=== PATIENT | female | born 1940 | race Caucasian/White ===

== ENCOUNTER 2020-12-10 11:32 | Inpatient (IN) | payer MEDICARE ==
[~2020-12-10] VITALS: Ht 165.1 cm; Wt 80.2 kg
[2020-12-10 12:39] LABS: BASOPHILS % (AUTO) 0.6 % (0.0-5.0); EOSINOPHILS % (AUTO) 0.8 % (0.0-8.0); HEMATOCRIT 39.7 % (36-48); LYMPHOCYTES % (AUTO) 18.3 % (21.0-51.0); MEAN CORPUSCULAR HEMOGLOBIN 33.5 pg (27.0-33.0); MEAN CORPUSCULAR HGB CONC 33.8 g/dL (32.0-36.0); MEAN CORPUSCULAR VOLUME 99.3 fL (79-99); MONOCYTES % (AUTO) 7.5 % (3.0-13.0); PLATELET COUNT (AUTO) 173 K/uL (130-400); RED CELL DISTRIBUTION WIDTH 14.2 % (11.0-15.5); WHITE BLOOD COUNT (AUTO) 13.1 K/uL (4.8-10.8)
[2020-12-10 12:47] LABS: CREATININE 1.2 mg/dL (0.5-1.5); POTASSIUM 4.2 mmol/L (3.5-5.1)
[2020-12-10 12:56] LABS: ALBUMIN 3.2 g/dL (3.5-5.0); BILIRUBIN,TOTAL 1.4 mg/dL (0.2-1.0); TOTAL PROTEIN, SERUM 6.5 g/dL (6.0-8.3)
[2020-12-10 12:59] LABS: INR 2.11 (0.85-1.15); PROTHROMBIN TIME 21.5 SEC (9.6-11.6)
[2020-12-10 13:00] LABS: PARTIAL THROMBOPLASTIN TIME 36.7 SEC (26.3-35.5)
[2020-12-10] MEDS ORDERED: NITROGLYCERIN 0.4 MG SL TAB SL PRN (19:15)
[2020-12-10] MEDS ORDERED: ONDANSETRON 4MG INJ IV PRN (19:15)
[2020-12-10] MEDS ORDERED: ACETAMINOPHEN 325 MG TAB PO PRN ×2 (19:15)
[2020-12-10 19:19] LABS: APPEARANCE,URINE Clear (CLEAR); BILIRUBIN,URINE Negative (NEGATIVE); COLOR,URINE Yellow (YELLOW); GLUCOSE, URINE (UA) Negative (NEGATIVE); KETONES,URINE 15 mg/dL (NEGATIVE); LEUKOCYTE ESTERASE ,URINE Trace (NEGATIVE); NITRATE,URINE Negative (NEGATIVE); OCCULT BLOOD,URINE Negative (NEGATIVE); PH,URINE 5.5 (5.0-8.0); PROTEIN,URINE Negative (NEGATIVE)
[2020-12-10 19:24] LABS: RBC,URINE 0-1 /HPF (0-1)
[2020-12-10 19:25] LABS: BACTERIA,URINE Few /HPF (None Seen); SQUAMOUS EPITHELIAL CELL,UR Few /HPF (0-2)
[2020-12-10 20:04] LABS: CREATINE KINASE, TOTAL 238 U/L (21-232); MYOGLOBIN 279 ng/mL (10-92); TROPONIN I < 0.04 ng/mL (0.00-0.06)
[2020-12-10] MEDS: CEFTRIAXONE 1G VIAL IVP SCH (20:30)
[2020-12-10] MEDS ORDERED: MAGNESIUM 2GM PREMIX 50ML 50 ML IV SCH (20:30)
[2020-12-11] MEDS ORDERED: FAMOTIDINE 20MG TAB ONE ×2 (01:53→09:35)
[2020-12-11] MEDS ORDERED: MAGNESIUM 2GM PREMIX 50ML 50 ML IV ONE (01:53)
[2020-12-11] MEDS ORDERED: CEFTRIAXONE 1G VIAL ONE (01:53)
[2020-12-11] MEDS ORDERED: 0.9%NACL 1000ML 1,000 ML IV ONE (01:54)
[2020-12-11 05:34] LABS: BASOPHILS % (AUTO) 0.9 % (0.0-5.0); EOSINOPHILS % (AUTO) 3.5 % (0.0-8.0); HEMATOCRIT 38.3 % (36-48); LYMPHOCYTES % (AUTO) 27.4 % (21.0-51.0); MEAN CORPUSCULAR HEMOGLOBIN 33.7 pg (27.0-33.0); MEAN CORPUSCULAR HGB CONC 33.4 g/dL (32.0-36.0); MEAN CORPUSCULAR VOLUME 100.8 fL (79-99); MONOCYTES % (AUTO) 7.7 % (3.0-13.0); NEUTROPHILS % (AUTO) 60.1 % (40.0-77.0); PLATELET COUNT (AUTO) 163 K/uL (130-400); RED CELL DISTRIBUTION WIDTH 14.4 % (11.0-15.5); WHITE BLOOD COUNT (AUTO) 9.2 K/uL (4.8-10.8)
[2020-12-11 05:41] LABS: INR 1.87 (0.85-1.15); PROTHROMBIN TIME 19.3 SEC (9.6-11.6)
[2020-12-11 06:00] LABS: ALANINE AMINOTRANSFERASE 19 U/L (12-78); ALBUMIN 2.9 g/dL (3.5-5.0); ASPARTATE AMINOTRANSFERASE 23 U/L (10-37); BILIRUBIN,TOTAL 1.3 mg/dL (0.2-1.0); CARBON DIOXIDE 21 mmol/L (21-32); CHLORIDE 104 mmol/L (101-111); CREATINE KINASE, TOTAL 154 U/L (21-232); GLOMERULAR FILTR. RATE CALC 56 mL/min (>60); GLUCOSE,RANDOM 75 mg/dL (70-105); MYOGLOBIN 98 ng/mL (10-92); POTASSIUM 4.2 mmol/L (3.5-5.1); SODIUM SERUM 137 mmol/L (136-145); TROPONIN I < 0.04 ng/mL (0.00-0.06); UREA NITROGEN, BLOOD 19 mg/dL (7-18)
[2020-12-11] MEDS: FAMOTIDINE 20MG TAB PO SCH (09:00)
[2020-12-11] MEDS: CEFTRIAXONE 1G VIAL IVP SCH (20:30)
[2020-12-11 23:25] VITALS: BP 111/53
[2020-12-12] VITALS (7 sets, daily range): BP systolic 99–142; BP diastolic 50–99
[2020-12-12] MEDS ORDERED: LEVO50CA4 PO (00:30)
[2020-12-12] MEDS ORDERED: METO-391 PO (00:30)
[2020-12-12] MEDS ORDERED: PRED5TAB PO (00:30)
[2020-12-12] MEDS ORDERED: POTA10CA44 PO (00:30)
[2020-12-12] MEDS ORDERED: BIOT800T PO (00:30)
[2020-12-12] MEDS ORDERED: RAMI2.5C55 PO (00:30)
[2020-12-12] MEDS ORDERED: FLUO40CR TP (00:30)
[2020-12-12] MEDS ORDERED: FURO20TA4 PO (00:30)
[2020-12-12] MEDS ORDERED: WARF2.5T85 PO (00:30)
[2020-12-12] MEDS ORDERED: ALLO100T PO (00:30)
[2020-12-12] MEDS ORDERED: OMEP20CA12 PO (00:30)
[2020-12-12] MEDS: 0.9%NACL 1000ML 1,000 ML IV SCH ×2 (01:37→01:38)
[2020-12-12] MEDS ORDERED: METOPROLOL TARTRATE 25 MG TAB PO SCH (05:15)
[2020-12-12] MEDS: LEVOFLOXACIN 500 MG/D5W 100 ML 100 ML IV SCH (05:30)
[2020-12-12 05:54] LABS: BASOPHILS % (AUTO) 0.7 % (0.0-5.0); EOSINOPHILS % (AUTO) 2.7 % (0.0-8.0); HEMATOCRIT 38.6 % (36-48); LYMPHOCYTES % (AUTO) 24.7 % (21.0-51.0); MEAN CORPUSCULAR HEMOGLOBIN 32.6 pg (27.0-33.0); MEAN CORPUSCULAR HGB CONC 32.4 g/dL (32.0-36.0); MEAN CORPUSCULAR VOLUME 100.8 fL (79-99); MONOCYTES % (AUTO) 8.2 % (3.0-13.0); NEUTROPHILS % (AUTO) 62.9 % (40.0-77.0); PLATELET COUNT (AUTO) 179 K/uL (130-400); RED BLOOD CELL COUNT(AUTO) 3.83 MIL/uL (4.00-5.50); RED CELL DISTRIBUTION WIDTH 14.2 % (11.0-15.5); WHITE BLOOD COUNT (AUTO) 9.4 K/uL (4.8-10.8)
[2020-12-12 05:57] LABS: CREATININE 1.1 mg/dL (0.5-1.5); POTASSIUM 3.9 mmol/L (3.5-5.1)
[2020-12-12 06:00] LABS: INR 1.76 (0.85-1.15); PROTHROMBIN TIME 18.2 SEC (9.6-11.6)
[2020-12-12] MEDS: LEVOTHYROXINE 50 MCG TABLET PO SCH (08:51)
[2020-12-12] MEDS: FAMOTIDINE 20MG TAB PO SCH (08:57)
[2020-12-12] MEDS: ALLOPURINOL 100 MG TABLET PO SCH (08:57)
[2020-12-12] MEDS: LISINOPRIL 10 MG TABLET PO SCH (08:58)
[2020-12-12] MEDS: METOPROLOL SUCCINATE 50 MG TAB.SR.24H PO SCH (08:58)
[2020-12-12] MEDS: PANTOPRAZOLE 40 MG TAB DR PO SCH (08:58)
[2020-12-12] MEDS: FUROSEMIDE 20 MG TABLET PO SCH (09:00)
[2020-12-12] MEDS ORDERED: WARFARIN SODIUM 2.5 MG TAB PO SCH ×2 (16:00→17:00)
[2020-12-13 04:00] VITALS: BP 135/81
[2020-12-13 04:43] LABS: INR 1.56 (0.85-1.15); PROTHROMBIN TIME 16.3 SEC (9.6-11.6)
[2020-12-13 05:18] LABS: BASOPHILS % (AUTO) 0.6 % (0.0-5.0); HEMATOCRIT 39.4 % (36-48); LYMPHOCYTES % (AUTO) 26.9 % (21.0-51.0); MEAN CORPUSCULAR HEMOGLOBIN 32.7 pg (27.0-33.0); MEAN CORPUSCULAR HGB CONC 32.5 g/dL (32.0-36.0); MEAN CORPUSCULAR VOLUME 100.8 fL (79-99); MONOCYTES % (AUTO) 8.5 % (3.0-13.0); NEUTROPHILS % (AUTO) 61.2 % (40.0-77.0); PLATELET COUNT (AUTO) 191 K/uL (130-400); RED BLOOD CELL COUNT(AUTO) 3.91 MIL/uL (4.00-5.50); RED CELL DISTRIBUTION WIDTH 14.2 % (11.0-15.5); WHITE BLOOD COUNT (AUTO) 10.1 K/uL (4.8-10.8)
[2020-12-13 05:21] LABS: CREATININE 1.2 mg/dL (0.5-1.5); POTASSIUM 4.1 mmol/L (3.5-5.1)
[2020-12-13] MEDS: LEVOTHYROXINE 50 MCG TABLET PO SCH (05:48)
[2020-12-13] MEDS: LEVOFLOXACIN 500 MG/D5W 100 ML 100 ML IV SCH (05:48)
[2020-12-13 08:03] VITALS: BP 132/75
[2020-12-13] MEDS: FAMOTIDINE 20MG TAB PO SCH (10:03)
[2020-12-13] MEDS: PANTOPRAZOLE 40 MG TAB DR PO SCH (10:03)
[2020-12-13] MEDS: METOPROLOL SUCCINATE 50 MG TAB.SR.24H PO SCH (10:03)
[2020-12-13] MEDS: ALLOPURINOL 100 MG TABLET PO SCH (10:03)
[2020-12-13] MEDS: LISINOPRIL 10 MG TABLET PO SCH (10:03)
[2020-12-13] MEDS: FUROSEMIDE 20 MG TABLET PO SCH (10:04)
[2020-12-13 11:11] VITALS: BP 145/61
[2020-12-13 16:25] VITALS: BP 132/66
[2020-12-13] MEDS: WARFARIN SODIUM 5 MG TAB PO SCH (16:58)
[2020-12-13] MEDS ORDERED: WARFARIN SODIUM 2.5 MG TAB PO SCH (17:00)
[2020-12-13 19:00] VITALS: BP 109/72
[2020-12-13 23:51] VITALS: BP 117/55
[2020-12-14 04:00] VITALS: BP 118/65
[2020-12-14 04:05] LABS: BASOPHILS % (AUTO) 0.5 % (0.0-5.0); EOSINOPHILS % (AUTO) 2.6 % (0.0-8.0); HEMATOCRIT 39.9 % (36-48); LYMPHOCYTES % (AUTO) 28.7 % (21.0-51.0); MEAN CORPUSCULAR HEMOGLOBIN 33.8 pg (27.0-33.0); MEAN CORPUSCULAR HGB CONC 33.6 g/dL (32.0-36.0); MEAN CORPUSCULAR VOLUME 100.5 fL (79-99); MONOCYTES % (AUTO) 9.2 % (3.0-13.0); PLATELET COUNT (AUTO) 179 K/uL (130-400); RED BLOOD CELL COUNT(AUTO) 3.97 MIL/uL (4.00-5.50); RED CELL DISTRIBUTION WIDTH 14.1 % (11.0-15.5); WHITE BLOOD COUNT (AUTO) 9.4 K/uL (4.8-10.8)
[2020-12-14 04:12] LABS: CREATININE 1.1 mg/dL (0.5-1.5); POTASSIUM 3.8 mmol/L (3.5-5.1)
[2020-12-14 04:19] LABS: INR 1.65 (0.85-1.15); PROTHROMBIN TIME 17.2 SEC (9.6-11.6)
[2020-12-14] MEDS: LEVOTHYROXINE 50 MCG TABLET PO SCH (05:21)
[2020-12-14] MEDS: LEVOFLOXACIN 500 MG/D5W 100 ML 100 ML IV SCH (05:21)
[2020-12-14 08:00] VITALS: BP 111/65
[2020-12-14] MEDS: LISINOPRIL 10 MG TABLET PO SCH (09:52)
[2020-12-14] MEDS: PREDNISONE 5 MG TABLET PO SCH (09:52)
[2020-12-14] MEDS: PANTOPRAZOLE 40 MG TAB DR PO SCH (09:52)
[2020-12-14] MEDS: FUROSEMIDE 20 MG TABLET PO SCH (09:52)
[2020-12-14] MEDS: ALLOPURINOL 100 MG TABLET PO SCH (09:52)
[2020-12-14] MEDS: METOPROLOL SUCCINATE 50 MG TAB.SR.24H PO SCH (09:52)
[2020-12-14] MEDS: FAMOTIDINE 20MG TAB PO SCH (09:53)
[2020-12-14 11:41] VITALS: BP 129/75
[2020-12-14 16:00] VITALS: BP 119/60
[2020-12-14] MEDS: WARFARIN SODIUM 5 MG TAB PO SCH (17:22)
[2020-12-14 20:00] VITALS: BP 94/52
[2020-12-14 23:00] VITALS: BP 106/57
[2020-12-15 04:00] VITALS: BP 104/47
[2020-12-15] MEDS: LEVOFLOXACIN 500 MG/D5W 100 ML 100 ML IV SCH (04:39)
[2020-12-15 05:50] LABS: BASOPHILS % (AUTO) 0.5 % (0.0-5.0); EOSINOPHILS % (AUTO) 2.6 % (0.0-8.0); HEMATOCRIT 41.6 % (36-48); LYMPHOCYTES % (AUTO) 27.2 % (21.0-51.0); MEAN CORPUSCULAR HEMOGLOBIN 32.5 pg (27.0-33.0); MEAN CORPUSCULAR HGB CONC 32.7 g/dL (32.0-36.0); MEAN CORPUSCULAR VOLUME 99.5 fL (79-99); MONOCYTES % (AUTO) 8.9 % (3.0-13.0); NEUTROPHILS % (AUTO) 60.1 % (40.0-77.0); PLATELET COUNT (AUTO) 214 K/uL (130-400); RED BLOOD CELL COUNT(AUTO) 4.18 MIL/uL (4.00-5.50); RED CELL DISTRIBUTION WIDTH 14.1 % (11.0-15.5); WHITE BLOOD COUNT (AUTO) 10.5 K/uL (4.8-10.8)
[2020-12-15] MEDS: LEVOTHYROXINE 50 MCG TABLET PO SCH (05:50)
[2020-12-15 06:03] LABS: INR 1.79 (0.85-1.15); PROTHROMBIN TIME 18.5 SEC (9.6-11.6)
[2020-12-15 06:50] LABS: ALBUMIN 2.9 g/dL (3.5-5.0); BILIRUBIN,TOTAL 0.8 mg/dL (0.2-1.0); CREATININE 1.6 mg/dL (0.5-1.5); POTASSIUM 3.8 mmol/L (3.5-5.1); TOTAL PROTEIN, SERUM 6.3 g/dL (6.0-8.3)
[2020-12-15] MEDS ORDERED: LACTATED RINGERS 1000ML 1,000 ML IV SCH (07:30)
[2020-12-15] MEDS: PREDNISONE 5 MG TABLET PO SCH (08:25)
[2020-12-15] MEDS: METOPROLOL SUCCINATE 50 MG TAB.SR.24H PO SCH (08:25)
[2020-12-15] MEDS: LISINOPRIL 10 MG TABLET PO SCH (08:25)
[2020-12-15] MEDS: FAMOTIDINE 20MG TAB PO SCH (08:25)
[2020-12-15] MEDS: PANTOPRAZOLE 40 MG TAB DR PO SCH (08:25)
[2020-12-15] MEDS: ALLOPURINOL 100 MG TABLET PO SCH (08:25)
[2020-12-15 08:42] VITALS: BP 106/45
[2020-12-15 12:37] VITALS: BP 113/51
[2020-12-15] MEDS: WARFARIN SODIUM 5 MG TAB PO SCH (17:13)
[2020-12-15 17:51] VITALS: BP 120/56
[2020-12-15 20:10] VITALS: BP 94/45
[2020-12-15 23:00] VITALS: BP 100/52
[2020-12-16 04:26] VITALS: BP 130/77
[2020-12-16] MEDS: LEVOTHYROXINE 50 MCG TABLET PO SCH (05:52)
[2020-12-16 06:05] LABS: BASOPHILS % (AUTO) 0.7 % (0.0-5.0); EOSINOPHILS % (AUTO) 2.8 % (0.0-8.0); HEMATOCRIT 40.5 % (36-48); LYMPHOCYTES % (AUTO) 24.7 % (21.0-51.0); MEAN CORPUSCULAR HEMOGLOBIN 32.7 pg (27.0-33.0); MEAN CORPUSCULAR HGB CONC 32.6 g/dL (32.0-36.0); MEAN CORPUSCULAR VOLUME 100.2 fL (79-99); MONOCYTES % (AUTO) 10.3 % (3.0-13.0); NEUTROPHILS % (AUTO) 60.8 % (40.0-77.0); PLATELET COUNT (AUTO) 184 K/uL (130-400); RED BLOOD CELL COUNT(AUTO) 4.04 MIL/uL (4.00-5.50); RED CELL DISTRIBUTION WIDTH 14.1 % (11.0-15.5); WHITE BLOOD COUNT (AUTO) 10.7 K/uL (4.8-10.8)
[2020-12-16 06:18] LABS: INR 2.37 (0.85-1.15); PROTHROMBIN TIME 23.9 SEC (9.6-11.6)
[2020-12-16 06:19] LABS: PARTIAL THROMBOPLASTIN TIME 37.5 SEC (26.3-35.5)
[2020-12-16 06:23] LABS: ALBUMIN 2.7 g/dL (3.5-5.0); BILIRUBIN,TOTAL 0.7 mg/dL (0.2-1.0); CREATININE 1.9 mg/dL (0.5-1.5); POTASSIUM 3.9 mmol/L (3.5-5.1)
[2020-12-16 06:53] VITALS: BP 127/64
[2020-12-16 09:00] VITALS: BP 92/60
[2020-12-16] MEDS: METOPROLOL SUCCINATE 50 MG TAB.SR.24H PO SCH (09:00)
[2020-12-16] MEDS: LISINOPRIL 10 MG TABLET PO SCH (09:00)
[2020-12-16] MEDS: ALLOPURINOL 100 MG TABLET PO SCH (09:02)
[2020-12-16] MEDS: PANTOPRAZOLE 40 MG TAB DR PO SCH (09:02)
[2020-12-16] MEDS: PREDNISONE 5 MG TABLET PO SCH (09:02)
[2020-12-16] MEDS: FAMOTIDINE 20MG TAB PO SCH (09:02)
[2020-12-16 15:05] VITALS: BP 100/86
[2020-12-16 16:54] VITALS: BP 141/74
[2020-12-16] MEDS: WARFARIN SODIUM 5 MG TAB PO SCH (17:03)
== END 2020-12-16 18:38 | DRG 64 ==
LOC: EDH 11:32 → OBSVTOIN 18:49 → EDHIP 18:49 → 3CH 12-11 21:11 → 4BH 12-12 18:56
PROVIDERS: ADMIT Internal Medicine; ATTEND Internal Medicine
DX: I63.512 Cerebral infarction due to unspecified occlusion or stenosis of left middle cerebral artery (principal); G93.41 Metabolic encephalopathy; N39.0 Urinary tract infection, site not specified; N17.9 Acute kidney failure, unspecified; M62.82 Rhabdomyolysis; E83.42 Hypomagnesemia; I48.91 Unspecified atrial fibrillation; R47.01 Aphasia; E78.5 Hyperlipidemia, unspecified; I10 Essential (primary) hypertension; R58 Hemorrhage, not elsewhere classified; J44.9 Chronic obstructive pulmonary disease, unspecified; Z20.822 Contact with and (suspected) exposure to COVID-19; Z79.01 Long term (current) use of anticoagulants; Z88.8 Allergy status to other drugs, medicaments and biological substances; Z83.3 Family history of diabetes mellitus; Z82.49 Family history of ischemic heart disease and other diseases of the circulatory system
CPT/HCPCS: 36415; 70450; 70551; 71045; 73502; 80048; 80053; 81001; 82550; 82607; 82948; 83735; 83874; 84484; 85025; 85610; 85730; 87088; 87426; 92507; 92522; 92526; 92610; 93005; 93356; 93880; 96374; 97039; C8929; G0378; J0696; J1956; J3475; J7030; J7120; J7512; U0003